=== PATIENT | female | born 1945 | race Caucasian/White ===

== ENCOUNTER → 2017-04-09 | Outpatient (CLI) | payer OTHER | LOC: RAD 09:31 → NUC 10:13 | DX: Z12.31 Encounter for screening mammogram for malignant neoplasm of breast (principal); M81.0 Age-related osteoporosis without current pathological fracture; M85.88 Other specified disorders of bone density and structure, other site; E28.8 Other ovarian dysfunction; Z78.0 Asymptomatic menopausal state ==

== ENCOUNTER → 2018-06-07 | Outpatient (CLI) | payer OTHER | LOC: BC 12:16 | DX: Z12.31 Encounter for screening mammogram for malignant neoplasm of breast (principal) ==

== ENCOUNTER → 2021-03-21 | Outpatient (CLI) | payer OTHER | LOC: NUC 13:22 | DX: Z00.00 Encounter for general adult medical examination without abnormal findings (principal); M81.0 Age-related osteoporosis without current pathological fracture; J30.9 Allergic rhinitis, unspecified; R15.9 Full incontinence of feces; L43.9 Lichen planus, unspecified; G47.62 Sleep related leg cramps ==

== ENCOUNTER → 2021-05-03 | Outpatient (CLI) | payer OTHER | LOC: BC 05-02 15:54 | DX: Z12.31 Encounter for screening mammogram for malignant neoplasm of breast (principal); N64.89 Other specified disorders of breast ==